=== PATIENT | female | born 1980 | race Caucasian/White ===

== ENCOUNTER 2016-05-28 19:50 | Emergency (ER) | payer OTHER ==
[2016-05-28] MEDS ORDERED: SODIUM CHLORIDE 0.9% 500 ML IV STA (22:27)
[2016-05-28] MEDS ORDERED: HYDROcodone/APAP 5-325MG 1 EACH TAB PO STA (22:27)
--- NOTE | 2016-05-28 23:22 | ED ---
Skin/Abscess/FB HPI - General Chief complaint: Skin/Abscess/Foreign Body Stated complaint: left breast abscess Time Seen by Provider: 05/28/16 21:49 Source: patient Mode of arrival: ambulatory Limitations: no limitations - History of Present Illness Initial comments: The patient is a 35-year-old female who presents to ED with a chief complaint of left-sided breast pain. States that this pain has been present over the course of the last 24-48 hours. Patient states that she's had a small amount of drainage that she believes might be purulent in nature. Patient denies any fevers or chills. She states that she had a cyst removed from her left breast in the past and has had recurrent episodes similar to today over the course the past several years. Patient notes that she smokes cigarettes on a regular basis. Patient denies any trauma to the left breast. Patient denies any chance that she could be . - Related Data Previous Rx's Medication Instructions Recorded Cephalexin [Keflex] 500 mg PO TID #21 cap 05/28/16 HYDROcodone/APAP 5-325MG [[place] 1 tab PO Q6HR PRN #12 tab 05/28/16 5-325] Sulfamethox-Tmp 800-160Mg [Bactrim 1 tab PO BID #14 tab 05/28/16 DS 800-160 mg] Allergies Allergy/AdvReac Type Severity Reaction Status Date / Time No Known Allergies Allergy Verified 05/28/16 20:35 Review of Systems ROS Statement: Those systems with pertinent positive or pertinent negative responses have been documented in the HPI. ROS Other: All systems not noted in ROS Statement are negative. Constitutional: Denies: fever, chills ENT: Denies: throat pain Respiratory: Denies: cough, dyspnea Cardiovascular: Denies: chest pain Endocrine: Reports: fatigue Gastrointestinal: Denies: abdominal pain, nausea, vomiting, diarrhea, constipation Genitourinary: Denies: urgency, dysuria, frequency, hematuria Skin: Reports: change in color, other (erythema of the left breast). Denies: rash, lesions Neurological: Denies: headache, weakness, numbness, paresthesias, confusion Past Medical History Past Medical History: Hypertension History of Any Multi-Drug Resistant Organisms: None Reported Past Surgical History: Breast Surgery Past Anesthesia/Blood Transfusion Reactions: No Reported Reaction Past Psychological History: Anxiety Additional Psychological History / Comment(s): Single. Her girlfriend, Evita, has been assisting packing her wound. There are pet dog and cat in the home. Does not work outside of the home. Ongoing tobacco use. No significant alcohol use related. No recreational drug use related. No experience. Smoking Status: Current every day smoker Past Alcohol Use History: Occasional Past Drug Use History: Marijuana - Past Family History Father Family Medical History: Cancer Mother Family Medical History: Coronary Artery Disease (CAD) General Exam Limitations: no limitations General appearance: alert, in no apparent distress Head exam: Absent: atraumatic, normocephalic Eye exam: Present: normal appearance, PERRL, EOMI Pupils: Present: normal accommodation ENT exam: Present: normal exam, mucous membranes dry Neck exam: Present: normal inspection, full ROM Respiratory exam: Present: normal lung sounds bilaterally, wheezes (trace bilateral expiratory wheezes). Absent: respiratory distress, rales, rhonchi, stridor, chest wall tenderness Cardiovascular Exam: Present: normal rhythm, tachycardia, normal heart sounds GI/Abdominal exam: Present: soft. Absent: distended, tenderness Extremities exam: Present: normal inspection Back exam: Present: normal inspection Neurological exam: Present: alert, oriented X3 Psychiatric exam: Present: normal affect Skin exam: Present: warm, dry, intact, other (erythema noted of the left breast. There is tenderness to palpation with a firm, approximately golfball- sized area in the 3 o'clock position. This is tender to palpation and non- fluctuant in nature. I cannot elicit any drainage) Course Vital Signs 05/28/16 05/28/16 20:35 23:32 Temperature 98.9 F 98.0 F Pulse Rate 108 H 87 Respiratory 20 18 Rate Blood Pressure 131/80 121/71 O2 Sat by Pulse 97 98 Oximetry Medical Decision Making - Medical Decision Making The patient is a 35-year-old female who presents to ED with a chief complaint of left-sided breast pain. Patient states that she's also had erythema of this left breast. Patient notes that she had some drainage earlier in the day today. She notes that she's had recurrent episodes drainage as well as infection of the left breast since she had a cyst removed several years ago. Patient notes that she is smoker. Denies any history of diabetes. Patient denies any nausea or vomiting. States that she's been taking Tylenol for pain relief. On examination, there is a large amount of erythema of the left breast. I'm unable to elicit any purulent drainage with palpation. There is a firm area noted in 3 o'clock position of the left breast. This is nonfluctuant nature. Given location of infection and lack of fluctuance, I do not believe that it would be useful to do a needle aspiration or an incision and drainage at this point in time. Check CBC, BMP, mag. Bolus patient with 500cc. Check Lactic Acid and Blood Cultures. 11:22 PM The patient states that she cannot stay for lab work or IV fluids. She states that she needs to leave at this moment due to the fact that her ride has to leave for work. Counseled the patient that I'm comfortable with this plan as long she agrees to return to the ED should her symptoms worsen, particularly if associated with fever or chills. Patient will be discharged with prescriptions for Keflex and Bactrim. Counseled the patient on how to use his medications. Also discharge the patient with a prescription for [place] so that she can have relief of pain. I have encouraged the patient to contact her PCP on Monday for further follow-up. The patient may require an incision and drainage or needle drainage in the future. I have answered all the patient's questions to her satisfaction. Disposition Clinical Impression: Cellulitis of female breast Disposition: HOME SELF-CARE Condition: Good Instructions: Cellulitis (ED) Prescriptions: Cephalexin [Keflex] 500 mg PO TID #21 cap HYDROcodone/APAP 5-325MG [[place] 5-325] 1 tab PO Q6HR PRN #12 tab PRN Reason: Pain Sulfamethox-Tmp 800-160Mg [Bactrim DS 800-160 mg] 1 tab PO BID #14 tab Referrals: Zuhair Csaas MD [Primary Care Provider] - 05/30/16 (Please call Dr. Casas's office on Monday to schedule a follow-up appointment. He can further manage your breast pain) Time of Disposition: 23:22
[2016-05-28 23:32] VITALS: BP 121/71; PULSE 87; RESP 18; TEMP 98
== END 2016-05-28 23:32 | disposition home or self-care (01) ==
LOC: EC 19:50
DX: N61.0 Mastitis without abscess (principal); F17.210 Nicotine dependence, cigarettes, uncomplicated
CPT/HCPCS: 99282; 99283

== ENCOUNTER 2016-11-14 13:38 | Emergency (ER) | payer OTHER ==
[2016-11-14 14:00] VITALS: BP 158/91; PULSE 104; RESP 20; TEMP 98.6
--- NOTE | 2016-11-14 14:19 | ED ---
Wound/Laceration HPI - General Chief Complaint: Wound/Laceration Stated Complaint: Lac/Arm Time Seen by Provider: 11/14/16 14:03 Source: patient, RN notes reviewed Mode of arrival: ambulatory Limitations: no limitations - History of Present Illness Initial Comments: 36 yo female presents to the ER with cc of left forearm laceration. Patient states this happened last night when she fell and cut her arm. Patient states she is obtaining her tetanus. Patient states they clean the wound and they are here today due to the fact that the did notice it was open. There is no other injury with the fall. Patient denies any other symptoms at this time. Patient denies any recent fever, chills, shortness of breath, chest pain, back pain, abdominal pain, nausea vomiting, numbness or tingling, dysuria or hematuria, constipation or diarrhea, headaches or visual changes, or any other current symptoms. - Related Data Previous Rx's Medication Instructions Recorded Cephalexin [Keflex] 500 mg PO TID #21 cap 05/28/16 HYDROcodone/APAP 5-325MG [[place] 1 tab PO Q6HR PRN #12 tab 05/28/16 5-325] Sulfamethox-Tmp 800-160Mg [Bactrim 1 tab PO BID #14 tab 05/28/16 DS 800-160 mg] Cephalexin [Keflex] 500 mg PO Q6HR #40 cap 11/14/16 Allergies Allergy/AdvReac Type Severity Reaction Status Date / Time No Known Allergies Allergy Verified 11/14/16 14:00 Review of Systems ROS Statement: Those systems with pertinent positive or pertinent negative responses have been documented in the HPI. ROS Other: All systems not noted in ROS Statement are negative. Past Medical History Past Medical History: Hypertension History of Any Multi-Drug Resistant Organisms: None Reported Past Surgical History: Breast Surgery Past Anesthesia/Blood Transfusion Reactions: No Reported Reaction Past Psychological History: Anxiety Smoking Status: Current every day smoker Past Alcohol Use History: Occasional Past Drug Use History: Marijuana - Past Family History Father Family Medical History: Cancer Mother Family Medical History: Coronary Artery Disease (CAD) General Exam - General Exam Comments Initial Comments: General: The patient is awake and alert, in no distress, and does not appear acutely ill. Neck: The neck is supple, there is no tenderness. Cardiovascular: There is a regular rate and rhythm. No murmur, rub or gallop is appreciated. Respiratory: Lungs are clear to auscultation, respirations are non-labored, breath sounds are equal. No wheezes, stridor, rales, or rhonchi. Musculoskeletal: Sensation intact with 2+ pulses at the left return. Patient for serial laceration to left forearm. Patient's range of motion of the left wrist and the left elbow. 5/5 muscle strength testing throughout. There does appear to be some drainage from the wound at this time. Neurological: CN II-XII intact, There are no obvious motor or sensory deficits. Coordination appears grossly intact. Speech is normal. Skin: Skin is warm and dry and no rashes or lesions are noted. Psychiatric: Normal mood and affect. Limitations: no limitations Course Vital Signs 11/14/16 13:57 Temperature 98.6 F Pulse Rate 104 H Respiratory 20 Rate Blood Pressure 158/91 O2 Sat by Pulse 100 Oximetry Procedures - Procedures Initial comment: The area was cleaned and prepped. Steri-Strips are applied to the wound. Medical Decision Making - Medical Decision Making 36-year-old female presents emergency Department chief complaint of left forearm laceration. At this time due to the integrity of the wound we will only Steri-Strip loosely. We did discuss close follow up with Dr. Hay on antibiotics for discussed return parameters all questions. Patient stated that he understood and all questions have been answered. He will be discharged home Disposition Clinical Impression: Laceration of left forearm Disposition: HOME SELF-CARE Condition: Stable Instructions: Laceration (ED), Steristrips (ED) Additional Instructions: Please use medication as discussed. Please follow up with family doctor if symptoms have not improved over the next two days. Please return to the emergency room if your symptoms increase or worsen or for any other concerns. Prescriptions: Cephalexin [Keflex] 500 mg PO Q6HR #40 cap Referrals: Zuhair Casas MD [Primary Care Provider] - 1-2 days Time of Disposition: 14:32
--- NOTE | 2016-11-14 14:19 | XR ---
EXAMINATION TYPE: XR forearm LT DATE OF EXAM: 11/14/2016 CLINICAL HISTORY: Laceration fall injury yesterday with pain. TECHNIQUE: Two views of the left forearm are obtained. COMPARISON: None. FINDINGS: There is no acute fracture or dislocation seen in the left radius or ulna. The left elbow and wrist joints appear within normal limits. Mild focal soft tissue swelling possible subcutaneous hematoma along dorsal surface proximal to mid diaphysis is noted seen best on lateral view. IMPRESSION: There is no acute fracture or dislocation seen in the left radius or ulna.
== END 2016-11-14 14:40 | disposition home or self-care (01) ==
LOC: EC 13:38
DX: S51.812A Laceration without foreign body of left forearm, initial encounter (principal); F17.200 Nicotine dependence, unspecified, uncomplicated; W17.89XA Other fall from one level to another, initial encounter; W45.8XXA Other foreign body or object entering through skin, initial encounter
CPT/HCPCS: 99283

== ENCOUNTER 2017-02-08 19:44 | Emergency (ER) | payer OTHER ==
[2017-02-08 20:37] VITALS: RESP 18; TEMP 99.8
--- NOTE | 2017-02-08 21:24 | ED ---
General Adult HPI - General Chief complaint: ENT Stated complaint: Revisit/Lip pain Time Seen by Provider: 02/08/17 21:21 Source: patient, RN notes reviewed Mode of arrival: ambulatory Limitations: no limitations - History of Present Illness Initial comments: Patient is a 36-year-old female who presents emergency room today with a chief complaint of laceration to the inside of her mouth that occurred 3 days ago. Patient does admit that she was walking up the steps when she missed a step only down hitting a step causing a laceration to the inside of the gumline. She states she's been using peroxide and Listerine. She is worried about possible infection or she's noticed some mild swelling noted to the area. She denies any other complaints or associated symptoms. Patient denies any recent fever, chills, shortness of breath, chest pain, back pain, abdominal pain, nausea or vomiting, numbness or tingling, dysuria or hematuria, constipation or diarrhea, headaches or visual changes, or any other complaints. - Related Data Previous Rx's Medication Instructions Recorded Cephalexin [Keflex] 500 mg PO TID #21 cap 05/28/16 HYDROcodone/APAP 5-325MG [[place] 1 tab PO Q6HR PRN #12 tab 05/28/16 5-325] Sulfamethox-Tmp 800-160Mg [Bactrim 1 tab PO BID #14 tab 05/28/16 DS 800-160 mg] Cephalexin [Keflex] 500 mg PO Q6HR #40 cap 11/14/16 Clindamycin HCl [Cleocin] 300 mg PO Q6HR 10 Days 02/08/17 Allergies Allergy/AdvReac Type Severity Reaction Status Date / Time No Known Allergies Allergy Verified 02/08/17 20:37 Review of Systems ROS Statement: Those systems with pertinent positive or pertinent negative responses have been documented in the HPI. ROS Other: All systems not noted in ROS Statement are negative. Past Medical History Past Medical History: Hypertension History of Any Multi-Drug Resistant Organisms: None Reported Past Surgical History: Breast Surgery Past Anesthesia/Blood Transfusion Reactions: No Reported Reaction Past Psychological History: Anxiety Smoking Status: Current every day smoker Past Alcohol Use History: Occasional Past Drug Use History: Marijuana - Past Family History Father Family Medical History: Cancer Mother Family Medical History: Coronary Artery Disease (CAD) General Exam - General Exam Comments Initial Comments: General: The patient is awake and alert, in no distress, and does not appear acutely ill. Eye: Pupils are equal, round and reactive to light, extra-ocular movements are intact. No nystagmus. There is normal conjunctiva bilaterally. No signs of icterus. Ears, nose, mouth and throat: There are moist mucous membranes and no oral lesions. Neck: The neck is supple, there is no tenderness or JVD. Cardiovascular: There is a regular rate and rhythm. No murmur, rub or gallop is appreciated. Respiratory: Lungs are clear to auscultation, respirations are non-labored, breath sounds are equal. No wheezes, stridor, rales, or rhonchi. Musculoskeletal: Normal ROM, no tenderness. Strength 5/5. Sensation intact. Pulses equal bilaterally 2+. Neurological: A&O x 3. CN II-XII intact, There are no obvious motor or sensory deficits. Coordination appears grossly intact. Speech is normal. Skin: Patient does have a laceration to the inside of the left cheek measures approximate centimeter with no active bleeding. Psychiatric: Cooperative, appropriate mood & affect, normal judgment. Limitations: no limitations Course Vital Signs 02/08/17 20:34 Temperature 99.8 F H Pulse Rate 79 Respiratory 18 Rate Blood Pressure 187/95 O2 Sat by Pulse 98 Oximetry Medical Decision Making - Medical Decision Making She will be started on antibiotics clindamycin to cover for infection. Advised to follow-up family doctor return here to the emergency room symptoms increase worsen or for any other concerns. Disposition Clinical Impression: Laceration Disposition: HOME SELF-CARE Condition: Good Instructions: Laceration (ED) Additional Instructions: Please use medication as discussed. Please follow-up with family doctor in the next 2 days of symptoms have not improved. Please return to emergency room if the symptoms increase or worsen or for any other concerns. Prescriptions: Clindamycin HCl [Cleocin] 300 mg PO Q6HR 10 Days Referrals: Zuhair Casas MD [Primary Care Provider] - 1-2 days Time of Disposition: 21:23
[2017-02-08 21:52] VITALS: BP 160/75; PULSE 75
== END 2017-02-08 21:51 | disposition home or self-care (01) ==
LOC: EC 19:44
DX: S01.512A Laceration without foreign body of oral cavity, initial encounter (principal); F17.200 Nicotine dependence, unspecified, uncomplicated; W18.09XA Striking against other object with subsequent fall, initial encounter; Y93.01 Activity, walking, marching and hiking
CPT/HCPCS: 99282

== ENCOUNTER 2017-10-25 16:28 | Emergency (ER) | payer OTHER ==
[2017-10-25] MEDS ORDERED: cefTRIAXone 1,000 MG VIAL (IM USE) IM STA (19:17)
--- NOTE | 2017-10-25 19:20 | ED ---
Skin/Abscess/FB HPI - General Chief complaint: Skin/Abscess/Foreign Body Stated complaint: Abcess/breast Time Seen by Provider: 10/25/17 18:54 Source: patient, RN notes reviewed, old records reviewed Mode of arrival: ambulatory Limitations: no limitations - History of Present Illness Initial comments: This patient is a 37 year old female with CC of reopening of left breast abscess. Patient reports that she had surigery 2 years ago to have this removed. She reports that she was told that it was not cancerous at that time. She states that today it opened up and pus came out onto her bra. She denies fevers or chills. She states that she cannot follow up with the surgeon who completed this. - Related Data Previous Rx's Medication Instructions Recorded Cephalexin [Keflex] 500 mg PO Q6HR #40 cap 10/25/17 Sulfamethox-Tmp 800-160Mg [Bactrim 2 tab PO Q12HR #40 tab 10/25/17 DS 800-160 mg] amLODIPine [Norvasc] 5 mg PO DAILY #7 tab 10/25/17 Allergies Allergy/AdvReac Type Severity Reaction Status Date / Time No Known Allergies Allergy Verified 10/25/17 19:24 Review of Systems ROS Statement: Those systems with pertinent positive or pertinent negative responses have been documented in the HPI. ROS Other: All systems not noted in ROS Statement are negative. Past Medical History Past Medical History: Hypertension History of Any Multi-Drug Resistant Organisms: None Reported Past Surgical History: Breast Surgery Past Anesthesia/Blood Transfusion Reactions: No Reported Reaction Past Psychological History: Anxiety Smoking Status: Current every day smoker Past Alcohol Use History: Occasional Past Drug Use History: Marijuana - Past Family History Father Family Medical History: Cancer Mother Family Medical History: Coronary Artery Disease (CAD) General Exam - General Exam Comments Initial Comments: This is a well appearing 37 year old male, no distress. Limitations: no limitations General appearance: alert, in no apparent distress Head exam: Present: atraumatic, normocephalic, normal inspection Eye exam: Present: normal appearance, PERRL, EOMI. Absent: scleral icterus, conjunctival injection, periorbital swelling ENT exam: Present: normal exam, mucous membranes moist Neck exam: Present: normal inspection. Absent: tenderness, meningismus, lymphadenopathy Respiratory exam: Present: normal lung sounds bilaterally, other (Patient has a .5 cm opening over left areola, with surrounding cellulitis measuring 6cm. Abscess appears deep, but already draining. ). Absent: respiratory distress, wheezes, rales, rhonchi, stridor Cardiovascular Exam: Present: regular rate, normal rhythm, normal heart sounds. Absent: systolic murmur, diastolic murmur, rubs, gallop, clicks GI/Abdominal exam: Present: soft, normal bowel sounds. Absent: distended, tenderness, guarding, rebound, rigid Back exam: Present: normal inspection Neurological exam: Present: alert, oriented X3, CN II-XII intact Psychiatric exam: Present: normal affect, normal mood Skin exam: Present: warm, dry, intact, normal color. Absent: rash Course Vital Signs 10/25/17 10/25/17 16:57 19:56 Temperature 98.4 F 98.9 F Pulse Rate 109 H 97 Respiratory 16 19 Rate Blood Pressure 169/114 189/113 O2 Sat by Pulse 98 99 Oximetry Medical Decision Making - Medical Decision Making 37 year old female with reoccuring left breast abscess. It is already open and culture obtained. Patient has a deep abscess, with surrounding cellulitis. No recent antibiotics. Patient will be given a referral to general surgeon, and started on keflex and bactrim. Discussed that she needs to see surgeon and return if area is worsening. Patient agrees to treatment plan and will comply. Patient was also found to be hypertensive in ED, she reports that she does not follow with PCP and reports that her BP is always high. Discussed importance of follow up with PCP and will start on low dose norvasc. Disposition Clinical Impression: Left breast abscess, HTN (hypertension) Disposition: HOME SELF-CARE Condition: Good Instructions: Abscess Incision and Drainage (ED) Additional Instructions: Is a follow-up with on-call surgeon in regards to the left breast abscess. Take antibiotics as prescribed. Do warm compresses over the area. Return to emergency department if any alarming signs or symptoms occur. Prescriptions: amLODIPine [Norvasc] 5 mg PO DAILY #7 tab Cephalexin [Keflex] 500 mg PO Q6HR #40 cap Sulfamethox-Tmp 800-160Mg [Bactrim DS 800-160 mg] 2 tab PO Q12HR #40 tab Is patient prescribed a controlled substance at d/c from ED?: No When asked, does pt state using other controlled substances?: No If prescribed controlled substance>3 days was MAPS reviewed?: No If opioid is for acute pain is fill amount 7 days or less?: No If Rx opioid, was Start Talking consent form obtained?: No Referrals: None,Stated [Primary Care Provider] - 1-2 days Joe Floyd DO [Doctor of Osteopathic Medicine] - 1-2 days Gini Pineda MD [STAFF PHYSICIAN] - 1-2 days Time of Disposition: 19:18
[2017-10-25] MEDS ORDERED: cefTRIAXone 1,000 MG VIAL IM STA (19:34)
[2017-10-25 20:00] VITALS: BP 189/113; PULSE 97; RESP 19; TEMP 98.9
== END 2017-10-25 19:56 | disposition home or self-care (01) ==
LOC: EC 16:28
DX: N61.1 Abscess of the breast and nipple (principal); N61.0 Mastitis without abscess; I10 Essential (primary) hypertension; F17.200 Nicotine dependence, unspecified, uncomplicated; Z98.890 Other specified postprocedural states
CPT/HCPCS: 87070; 87205; 99283; 96372; J0696

== ENCOUNTER → 2024-01-25 | Outpatient (CLI) | payer OTHER ==
--- NOTE | 2024-01-26 10:09 | CA ---
Transthoracic Echo Report Name: Pavel Borrero Age: 43 Gender: F : 1980 Exam Date: 01/25/2024 12:53 Exam Location: [place] [facility] Ht (in): 58 Wt (lb): 120 Ordering Physician: Brian Lynn MD Attending/Referring Phys: Shane GLEASON Document Reviewer Juliana Nguyen RDCS Procedure CPT: Indications: R01.1 Murmur Cardiac Hx: Technical Quality: Fair Contrast 1: Total Dose (mL): Contrast 2: Total Dose (mL): MEASUREMENTS (Male / Female) Normal Values 2D ECHO LV Diastolic Diameter PLAX 3.0 cm 4.2 - 5.9 / 3.9 - 5.3 cm LV Systolic Diameter PLAX 2.2 cm IVS Diastolic Thickness 1.2 cm 0.6 - 1.0 / 0.6 - 0.9 cm LVPW Diastolic Thickness 1.2 cm 0.6 - 1.0 / 0.6 - 0.9 cm LV Relative Wall Thickness 0.8 RV Internal Dim ED PLAX 2.7 cm LVOT Diameter 2.0 cm LA Volume 27.1 cm??? 18 - 58 / 22 - 52 cm??? LA Volume Index 18.0 cm???/m??? 16 - 28 cm???/m??? M-MODE Aortic Root Diameter MM 2.9 cm LA Systolic Diameter MM 3.3 cm LA Ao Ratio MM 1.2 DOPPLER AV Peak Velocity 210.6 cm/s AV Peak Gradient 17.7 mmHg AV Mean Velocity 157.6 cm/s AV Mean Gradient 11.0 mmHg AV Velocity Time Integral 34.8 cm LVOT Peak Velocity 94.5 cm/s LVOT Peak Gradient 3.6 mmHg LVOT Velocity Time Integral 17.3 cm LVOT Stroke Volume 53.2 cm??? LVOT Stroke Volume Index 36.3 ml/m??? LVOT Cardiac Index 3459.6 cm???/min???m??? AV Area Cont Eq vti 1.5 cm??? AV Area Cont Eq pk 1.4 cm??? MV Area PHT 4.5 cm??? Mitral E Point Velocity 70.6 cm/s Mitral A Point Velocity 85.8 cm/s Mitral E to A Ratio 0.8 MV Deceleration Time 168.1 ms MV E' Velocity 6.0 cm/s Mitral E to MV E' Ratio 11.7 TR Peak Velocity 126.8 cm/s TR Peak Gradient 6.4 mmHg Right Ventricular Systolic Press 11.4 mmHg FINDINGS Left Ventricle Mildly increased left ventricular wall thickness. Left ventricular cavity size normal. Normal left ventricular systolic function with no obvious regional wall motion abnormalities. Left ventricular ejection fraction is estimated at 55-60 %. Grade 1 diastolic dysfunction. Right Ventricle Normal right ventricular size and function. Right ventricular systolic pressure within normal limits. Right Atrium Normal right atrial size. Left Atrium Normal left atrial size. Mitral Valve Structurally normal mitral valve. Trace mitral regurgitation. Aortic Valve Bicuspid aortic valve. Mild aortic stenosis with a peak gradient of 18 mmHg and a mean gradient of 11 mmHg. No aortic regurgitation. Tricuspid Valve Structurally normal tricuspid valve. Mild tricuspid regurgitation. Pulmonic Valve Structurally normal pulmonic valve. Pericardium No pericardial effusion. Aorta Normal size aortic root and proximal ascending aorta. CONCLUSIONS Diagnosis: Murmur Preserved LV systolic function Thickened aortic valve leaflets with a likely raphae, bicuspid aortic valve with mild stenosis Descending aorta not interrogated with Doppler. Previewed by: Dr. Marshal Fernandez MD (Electronically Signed) Final Date: 26 January 2024 10:08
--- NOTE | 2024-02-05 10:21 | MM ---
Reason for Exam: Screening (asymptomatic). Baseline mammogram. Patient History: Menarche at age 14. First Full-Term at age 14. Last menstrual period: 12/28/2023 Risk Values: Zabrina 5 year model risk: 0.5%. NCI Lifetime model risk: 6.5%. Prior Study Comparison: Patient's first Mammogram. Tissue Density: There are scattered areas of fibroglandular density. Findings: Analyzed By CAD. Right breast: There is no suspicious group of microcalcifications or new suspicious mass. Left breast: There is no suspicious group of microcalcifications or new suspicious mass. Overall Assessment: Negative, BI-RAD 1 Management: Screening Mammogram of both breasts in [address] [facility] will attempt to contact patient to return for supplemental views and ultrasound if indicated. Patient should continue monthly self-breast exams. A clinical breast exam by your physician is recommended on an annual basis. This exam should not preclude additional follow-up of suspicious palpable abnormalities. Note on Zabrina scores and lifetime risk: 1. A Zabrina score greater than 3% is considered moderate risk. If this is the case, consider specialist referral to assess eligibility for a risk reducing agent. 2. If overall lifetime risk for the development of breast cancer is 20% or higher, the patient may qualify for future screening with alternating mammogram and breast MRI. [facility], , 02/05/2024 10:18 AM. Electronically signed and approved by: Sebastian Calderon DO
== END | disposition home or self-care (01) ==
LOC: RADECHMAIN 12:50
PROVIDERS: ATTEND Family Medicine
DX: Z12.31 Encounter for screening mammogram for malignant neoplasm of breast
CPT/HCPCS: 77067; 93306